=== PATIENT | female | born 1985 | race Caucasian/White ===

== ENCOUNTER 2020-07-25 10:52 | Outpatient (REF) | payer OTHER, SELFPAY | END 2020-07-25 10:53 | disposition home or self-care (01) | LOC: HO.LAB 10:52 | PROVIDERS: Visit Provider Internal Medicine | DX: Z20.822 Contact with and (suspected) exposure to COVID-19 (principal) | CPT/HCPCS: 36415; C9803; U0003 ==

== ENCOUNTER 2020-07-29 08:47 | Outpatient (REF) | payer OTHER, SELFPAY | END 2020-07-29 08:48 | disposition home or self-care (01) | LOC: HO.LAB 08:47 | PROVIDERS: Visit Provider Internal Medicine | DX: Z20.822 Contact with and (suspected) exposure to COVID-19 (principal) | CPT/HCPCS: 36415; C9803; U0003 ==

== ENCOUNTER 2020-08-14 12:48 | Outpatient (REF) | payer OTHER, SELFPAY | END 2020-08-14 12:49 | disposition home or self-care (01) | LOC: HO.LAB 12:48 | PROVIDERS: Visit Provider Internal Medicine | DX: Z20.822 Contact with and (suspected) exposure to COVID-19 (principal) | CPT/HCPCS: 36415; C9803; U0003; U0005 ==

== ENCOUNTER 2021-04-27 11:43 | Outpatient (REF) | payer OTHER, SELFPAY | END 2021-04-27 11:44 | disposition home or self-care (01) | LOC: HO.LAB 11:43 | PROVIDERS: Visit Provider Internal Medicine | DX: Z20.822 Contact with and (suspected) exposure to COVID-19 (principal) | CPT/HCPCS: C9803; U0003; U0005 ==